=== PATIENT | female | born 1965 | race Asian ===

== ENCOUNTER 2020-07-25 07:52 | Day surgery (SDC) | payer BC ==
[~2020-07-25 07:52] MED LIST: Lactated Ringers 1,000 ML IV SCH; Lidocaine 1%/Sod Bicarbonate in NS 8.4% 1 ML Syringe IDERM PRN; Sodium Chloride 0.9% 10 ML Syringe FLUSH PRN
[2020-07-25] MEDS ORDERED: Bupivacaine 0.5%/EPINEPHrine 1:200,000 50 ML MDV ONE (08:16)
--- NOTE | 2020-07-25 08:51 | PCM.PREANE ---
Preanesthetic Assessment - Procedure Proposed Procedure: Excision Biopsy Lymph Node Left Axillary - Anesthesia/Transfusion/Family Hx Anesthesia History: No Prior Anesthesia Family History of Anesthesia Reaction: No - Review of Systems General: No Symptoms Pulmonary: No Symptoms Cardiovascular: No Symptoms Gastrointestinal: No Symptoms Neurological: No Symptoms Other: Reports: None - Physical Assessment NPO Status Date: 07/24/20 NPO Status Time: 17:00 Vital Signs: Last Vital Signs Temp 36.4 C 07/25/20 08:04 Pulse 72 07/25/20 08:04 Resp 17 07/25/20 08:04 BP 125/74 07/25/20 08:04 Pulse Ox 96 07/25/20 08:04 Height: 1.57 m Weight: 68.039 kg ASA Class: 1 Mental Status: Alert & Oriented x3 Airway Class: Mallampati = 2 Dentition: Reports: Normal Dentition Thyro-Mental Finger Breadths: 3 Mouth Opening Finger Breadths: 3 ROM/Head Extension: Full Lungs: Clear to Auscultation, Normal Respiratory Effort Cardiovascular: Regular Rate, Regular Rhythm - Allergies Allergies/Adverse Reactions: Allergies Allergy/AdvReac Type Severity Reaction Status Date / Time No Known Allergies Allergy Verified 07/24/20 10:51 - Acknowledgements Anesthesia Type Planned: General Anesthesia, MAC Pt an Appropriate Candidate for the Planned Anesthesia: Yes Alternatives and Risks of Anesthesia Discussed w Pt/Guardian: Yes Pt/Guardian Understands and Agrees with Anesthesia Plan: Yes Additional Comments: Misha does speak some latvian. Her is at the bedside and also has a translating application available for us assist with communication. All questions were answered. PreAnesthesia Questionnaire Cardiovascular History: Reports: Angina Gastrointestinal History: Reports: Other (See Below) Other Gastrointestinal History: gastric polyps Musculoskeletal History: Reports: Back Pain, Chronic Endocrine/Metabolic History: Reports: Other (See Below) Other Endocrine/Metabolic History: elevated TSH Hematologic History: Reports: Other (See Below) Other Hematologic History: Vitamin D deficiency Other Dermatologic History: mass soft tissue upper arm - SUBSTANCE USE Tobacco Use Status *Q: Never Tobacco User Recreational Drug Use History: No - HOME MEDS Home Medications: Home Meds Cholecalciferol (Vitamin D3) [Vitamin D3] 125 mcg PO DAILY 07/24/20 [History] Multivitamin 1 each PO DAILY 07/24/20 [History] [place]-3/DHA/Epa/Fish Oil [Fish Oil 500 mg Softgel] 1 tab PO DAILY 07/24/20 [History] Turmeric Root Extract [Turmeric Curcumin] 50 mg PO DAILY 07/24/20 [History] - CURRENT (IN HOUSE) MEDS Current Meds: Current Medications Lactated Ringer's (Ringers, Lactated) 1,000 mls @ 125 mls/hr IV ASDIRECTED TERESA Stop: 07/25/20 23:00 Last Admin: 07/25/20 08:04 Dose: 125 mls/hr Documented by: Lidocaine/Sodium Bicarbonate (Lidocaine 1%/Sod Bicarbonate In Ns 8.4% 1 Ml Syringe) 0.25 ml IDERM ONETIME PRN PRN Reason: Prior to IV Start Stop: 07/25/20 18:00 Last Admin: 07/25/20 08:04 Dose: 0.25 ml Documented by: Sodium Chloride (Sodium Chloride 0.9% 10 Ml Syringe) 10 ml FLUSH ASDIRECTED PRN PRN Reason: Keep Vein Open Stop: 07/25/20 18:00 Discontinued Medications Bupivacaine HCl/Epinephrine Bitart (Bupivacaine 0.5%/Epinephrine 1:200,000 50 Ml Mdv) Confirm Administered Dose 50 ml .ROUTE .STK-MED ONE Stop: 07/25/20 08:17
--- NOTE | 2020-07-25 09:00 | PCM.SN.2 ---
#1 Interpretation EKG Date: 07/25/20 Time: 07:15 Rhythm: NSR Rate (Beats/Min): 70 [place]: Normal P-Wave: Present QRS: Normal ST-T: Normal QT: Normal
[2020-07-25] MEDS ORDERED: Lidocaine 1% 6 ML ONE (09:10)
[2020-07-25] MEDS ORDERED: Midazolam 1 MG/ML 2 ML SDV ONE (09:10)
[2020-07-25] MEDS ORDERED: fentaNYL 250 MCG/5 ML SDV ONE (09:10)
[2020-07-25] MEDS ORDERED: Propofol 200 MG/20 ML SDV ONE (09:10)
[2020-07-25] MEDS ORDERED: Lidocaine 1% 4 ML ONE (09:11)
[2020-07-25] MEDS ORDERED: ceFAZolin 1 GM Vial ONE (09:33)
[2020-07-25] MEDS ORDERED: Ondansetron 4 MG/2 ML SDV ONE (09:42)
[2020-07-25] MEDS ORDERED: Lactated Ringers 1,000 ML ONE (09:43)
[2020-07-25] MEDS ORDERED: HYDROmorphone 0.5 MG/0.5 ML Syringe IVPUSH PRN (09:57)
[2020-07-25] MEDS ORDERED: fentaNYL 100 MCG/2 ML SDV IVPUSH PRN (09:57)
--- NOTE | 2020-07-25 10:29 | PCM.PRNOTE ---
- Free Text/Narrative Note: Date: 07/25/2020 Operation: excisional biopsy, left axillary mass Relevant history: Patient has had chronic left axillary fullness, with recent ultrasound interpreted as showing a 2.6 cm axillary lymph node. Subsequent mammography showed no concerning lesion in the left breast. Surgeon: Lambert aZmora MD Findings: Palpable fullness in the left axilla, confirmed with patient in the preoperative area, was marked prior to going to the operating room. Prior to prep, ultrasound was used to assess the area, no discrete lesion was truly appreciated. The axillary fatty and lymphatic tissue at the site of concern was excised and sent for pathologic analysis. There was no appreciable lymphadenopathy. Detailed Report: The patient was taken to the operating room and placed in supine position with the left arm abducted. Timeout was performed and laryngeal mask airway was inserted per anesthesia. The left chest and axilla were prepped and draped in usual sterile fashion. A total of 20 cc 0.5% Marcaine with epinephrine was injected at the marked area of concern for local anesthetic. A 3 cm incision was made over the area of fullness. We linear retractors were used to hold the skin and superficial subcutaneous fat out of the field of dissection. Monopolar energy was used to dissect down to axillary fat. There were no palpable or abnormal lymph nodes appreciated. The tissue corresponding to the area of fullness was excised with monopolar. Specimen was sent for pathologic analysis. After removal of some axillary tissue, the wound was digitally explored and no palpable mass or abnormality was appreciated. The wound was irrigated with sterile saline and closed in layers, with 3-0 Vicryl and the subcutaneous tissue and a running 4-0 Vicryl subcuticular stitch. The wound was dressed with Dermabond. The patient tolerated the procedure well.
--- NOTE | 2020-07-25 10:33 | PCM.POSTAN ---
POST ANESTHESIA ASSESSMENT - MENTAL STATUS Mental Status: Somnolent - VITAL SIGNS Vital Signs: Last Vital Signs Temp 97.0 F 07/25/20 10:30 Pulse 84 07/25/20 10:30 Resp 16 07/25/20 10:30 BP 122/67 07/25/20 10:30 Pulse Ox 100 07/25/20 10:30 - RESPIRATORY Respiratory Status: Respiratory Rate WNL, Airway Patent, O2 Saturation Stable, Supplemental Oxygen - CARDIOVASCULAR CV Status: Pulse Rate WNL, Blood Pressure Stable - GASTROINTESTINAL GI Status: No Symptoms - PAIN Pain Score: 0 - POST OP HYDRATION Hydration Status: Adequate & Stable
--- NOTE | 2020-07-25 11:37 | PCM48HPAN ---
Post Anesthesia Note - EVALUATION WITHIN 48HRS OF ANESTHETIC Vital Signs in Normal Range: Yes Patient Participated in Evaluation: Yes Respiratory Function Stable: Yes Airway Patent: Yes Cardiovascular Function Stable: Yes Hydration Status Stable: Yes Pain Control Satisfactory: Yes Nausea and Vomiting Control Satisfactory: Yes Mental Status Recovered: Yes Vital Signs: Last Vital Signs Temp 36.2 C 07/25/20 11:00 Pulse 64 07/25/20 11:30 Resp 17 07/25/20 11:30 BP 144/71 H 07/25/20 11:30 Pulse Ox 97 07/25/20 11:30
== END 2020-07-25 11:57 | disposition home or self-care (01) ==
LOC: JD.SDS 07:52
PROVIDERS: ATTEND Surgery
DX: M79.89 Other specified soft tissue disorders (principal); E78.00 Pure hypercholesterolemia, unspecified; Z86.010 Personal history of colon polyps; Z98.890 Other specified postprocedural states
CPT/HCPCS: 21555; 93005; J0690; J2250; J2405; J2704; J3010; J3490; J7120; 01610

== ENCOUNTER 2021-12-18 07:35 | Day surgery (SDC) | payer BC ==
[~2021-12-18 07:35] MED LIST changes: +Sodium Chloride 0.9% 10 ML Syringe FLUSH SCH
[2021-12-18] MEDS ORDERED: fentaNYL 100 MCG/2 ML SDV ONE (07:52)
[2021-12-18] MEDS ORDERED: Propofol 200 MG/20 ML SDV ONE (07:52)
[2021-12-18] MEDS ORDERED: Midazolam 1 MG/ML 2 ML SDV ONE (07:52)
[2021-12-18] MEDS ORDERED: Lactated Ringers 0 ML ONE (09:01)
[2021-12-18] MEDS ORDERED: ePHEDrine 50 MG/ML SDV ONE (09:04)
== END 2021-12-18 10:15 | disposition home or self-care (01) ==
LOC: JD.SDS 07:35
PROVIDERS: ATTEND Surgery
DX: Z12.11 Encounter for screening for malignant neoplasm of colon (principal); K29.50 Unspecified chronic gastritis without bleeding; K44.9 Diaphragmatic hernia without obstruction or gangrene; K64.9 Unspecified hemorrhoids; G47.00 Insomnia, unspecified; E55.9 Vitamin D deficiency, unspecified; R42 Dizziness and giddiness; R94.6 Abnormal results of thyroid function studies; Z86.16 Personal history of COVID-19; Z88.6 Allergy status to analgesic agent; Z79.82 Long term (current) use of aspirin; Z98.890 Other specified postprocedural states
CPT/HCPCS: 43239; 45378; J2250; J2704; J3010; J7120; 00813; 88305